=== PATIENT | female | born 1995 | race Asian ===

== ENCOUNTER 2020-08-03 07:35 | Outpatient (CLI) | payer BC, OTHER ==
--- NOTE | 2020-08-03 16:49 | XRAY Report ---
PROCEDURE: Abdomen 1 View X-Ray INDICATIONS: EPIGASTRIC PX TECHNIQUE: 1 view of the abdomen were acquired. COMPARISON: Abdomen plain film 08/05/2015 FINDINGS: Surgical changes and devices: None. Bowel: No pneumoperitoneum. The bowel gas pattern is normal except for mild colonic obstipation gre ater on the right than the left. Soft tissues: No masses; visualized solid organ contours appear normal in size. No suspicious abdom inal calcifications. Bones: No suspicious bony abnormalities. IMPRESSION: Normal bowel gas pattern except for mild colonic obstipation greater on the right than t he left. No urinary tract stone is found. No free air is suspected. Reviewed by: Nilay Urias MD on 08/03/2020 4:47 PM [facility] Approved by: Nilay Urias MD on 08/03/2020 4:47 PM [facility] Station ID: [id number]
== END 2020-08-03 23:59 | disposition home or self-care (01) ==
LOC: DI.N 07:35
PROVIDERS: ATTEND Physician Assistant Medical
DX: R10.13 Epigastric pain (principal); K59.00 Constipation, unspecified

== ENCOUNTER 2021-09-19 15:39 | Outpatient (CLI) | payer BC | END 2021-09-19 23:59 | disposition home or self-care (01) | LOC: LAB 15:39 | PROVIDERS: ATTEND Physician Assistant Medical | DX: U07.1 COVID-19 (principal) ==